=== PATIENT | female | born 1955 | race Caucasian/White ===

== ENCOUNTER 2016-06-10 14:36 | Outpatient (CLI) | payer MEDICARE, MEDICAID | END 2016-06-10 14:37 | disposition home or self-care (01) | DX: G47.33 Obstructive sleep apnea (adult) (pediatric) (principal) | CPT/HCPCS: 99214; G0463 ==

== ENCOUNTER 2016-07-15 13:45 | Outpatient (CLI) | payer MEDICARE, MEDICAID | END 2016-07-15 13:46 | disposition home or self-care (01) | DX: N18.3 Chronic kidney disease, stage 3 (moderate) (principal) ==

== ENCOUNTER 2016-09-08 14:47 | Outpatient (CLI) | payer MEDICARE, MEDICAID | END 2016-09-08 14:48 | disposition home or self-care (01) | DX: G47.33 Obstructive sleep apnea (adult) (pediatric) (principal); J06.9 Acute upper respiratory infection, unspecified | CPT/HCPCS: 99214; G0463 ==

== ENCOUNTER 2016-11-17 10:07 | Outpatient (CLI) | payer MEDICARE, MEDICAID | END 2016-11-17 10:08 | disposition home or self-care (01) | LOC: SC 10:07 | PROVIDERS: ATTEND Nurse Practitioner Family | DX: G47.33 Obstructive sleep apnea (adult) (pediatric) (principal) | CPT/HCPCS: 99214; G0463; 99212 ==

== ENCOUNTER 2016-12-25 10:07 | Outpatient (CLI) | payer MEDICARE, MEDICAID ==
--- NOTE | 2016-12-28 16:54 | Mammography Report ---
DIGITAL SCREENING MAMMOGRAM: 12/25/2016 CLINICAL INDICATION: A 61-year-old for screening. COMPARISON: 12/2015 TECHNIQUE: Routine CC and MLO projections were obtained of the breasts. FINDINGS: The breasts demonstrate scattered fibroglandular densities bilaterally. Coarse and puncta te, typically benign calcifications are present. No suspicious masses, clustered microcalcifications , or regions of architectural distortion are identified. IMPRESSION: BENIGN FINDINGS. RECOMMENDATION: Routine annual screening unless otherwise clinically indicated. BIRADS CATEGORY 2 - BENIGN FINDINGS. STANDARD QUALIFYING STATEMENTS 1. This examination was reviewed with the aid of Computer-Aided Detection (CAD). 2. A negative or benign imaging report should not delay biopsy if clinically suspicious findings are present. Consider surgical consultation if warranted. More than 5% of cancers are not identified by i maging. 3. Dense breasts may obscure an underlying neoplasm. JOB #: [id number] EXT JOB #:[id number]
== END 2016-12-25 10:08 | disposition home or self-care (01) ==
LOC: DI.N 10:07
PROVIDERS: ATTEND Physician Assistant Medical
DX: Z12.31 Encounter for screening mammogram for malignant neoplasm of breast (principal)
CPT/HCPCS: 77067

== ENCOUNTER 2017-01-19 10:14 | Outpatient (CLI) | payer MEDICARE, MEDICAID | END 2017-01-19 10:15 | disposition home or self-care (01) | LOC: SC 10:14 | PROVIDERS: ATTEND Nurse Practitioner Family | DX: G47.33 Obstructive sleep apnea (adult) (pediatric) (principal) | CPT/HCPCS: 99214; G0463; 99212 ==

== ENCOUNTER 2017-01-27 11:00 | Outpatient (CLI) | payer MEDICARE, MEDICAID ==
--- NOTE | 2017-01-28 12:14 | Ultrasound Report ---
BILATERAL LOWER EXTREMITY ARTERIAL DUPLEX: 01/27/2017 CLINICAL INDICATION: Peripheral vascular disease. COMPARISON: 11/13/2015. TECHNIQUE: Real-time sonographic vascular imaging was performed by the asphalt tamper through the lower extremities utilizing both color-flow and Doppler spectral analysis. Multiple u.s. representative static images were saved for review. RIGHT SIDE SITE PSV WAVEFORM STEN ERECTION SHOP SUPERVISOR 123 triphasic PSFA 132 triphasic MSFA 128 triphasic DSFA 108 triphasic PFA 112 monophasic POP 77 triphasic MADAN 65 triphasic RUCHING MACHINE OPERATOR 76 triphasic PER 56 monophasic DPA 76 triphasic LEFT SIDE SITE PSV WAVEFORM STEN ERECTION SHOP SUPERVISOR 147 triphasic PSFA 189 triphasic MSFA 133 triphasic DSFA 171 triphasic PFA 144 monophasic POP 81 triphasic MADAN 97 triphasic RUCHING MACHINE OPERATOR 63 biphasic PER 54 biphasic DPA 88 triphasic TECHNIQUE: Real-time scanning was performed. FINDINGS: RIGHT LEG: Waveforms are predominantly triphasic. There is no evidence of a focal velocity increase to suggest a hemodynamically significant stenosis. LEFT LEG: Waveforms are predominantly triphasic. There is no evidence of a focal velocity increase to suggest a hemodynamically significant stenosis. IMPRESSION: NO EVIDENCE OF A HEMODYNAMICALLY SIGNIFICANT STENOSIS IN EITHER LEG. NO SIGNIFICANT INTERVAL CHANGE. MTDD
== END 2017-01-27 23:59 | disposition home or self-care (01) ==
LOC: DI 11:00
PROVIDERS: ATTEND Physician Assistant Medical
DX: I73.9 Peripheral vascular disease, unspecified (principal); I71.4 Abdominal aortic aneurysm, without rupture
CPT/HCPCS: 93925

== ENCOUNTER 2017-02-02 09:38 | Outpatient (CLI) | payer MEDICARE, MEDICAID ==
[2017-02-02 10:46] LABS: CALCIUM 9.9 mg/dL (8.5-10.3); POTASSIUM 3.9 mmol/L (3.5-5.0)
[2017-02-02] MEDS ORDERED: IOPAMIDOL-300 100 ML VIAL IVP ONE (11:30)
--- NOTE | 2017-02-02 18:41 | CT Report ---
CT ANGIOGRAM AORTA WITH RUNOFF: 02/02/2017 CLINICAL INDICATION: Peripheral vascular disease, history of abdominal aortic aneurysm repair. Axial CT images of the abdomen, pelvis, and bilateral lower extremities were obtained in arterial pha se with enhancement. In accordance with CT protocol optimization, one or more of the following dose reduction techniques w ere utilized for this exam: automated exposure control, adjustment of mA and/or KV based on patient size, or use of iterative reconstructive technique. No previous runoff is available for comparison. Comparison is made to previous CT of the abdomen and pelvis of 11/13/2015. Limited evaluation of the lung bases is unremarkable. ABDOMEN: The abdominal aorta demonstrates atherosclerotic calcifications proximally. An aortobi-vaughn ac stent graft is in place, without evidence of intrastent stenosis. Right renal atrophy and right r enal arterial stent are stable. Left renal artery, celiac, and superior mesenteric arteries are wide ly patent. The iliac arteries are diseased but patent bilaterally, without evidence of a focal hemod ynamically significant stenosis. RIGHT LEG: The right common femoral artery, profunda femoris, superficial femoral, and popliteal art eries are patent but diseased. There is in line flow to the foot via a patent anterior tibial artery . The posterior tibial and peroneal arteries occlude in the mid calf. LEFT LEG: The left common femoral, profunda femoris, superficial femoral, and popliteal arteries are patent, with mild disease. There is no evidence of a hemodynamically significant stenosis. There i s three vessel runoff in the left calf, with flow into the foot via patent anterior tibial artery and posterior tibial arteries. Limited evaluation of abdominal structures demonstrates right renal atrophy and a left renal cyst. Osseous structures demonstrate degenerative changes. IMPRESSION: NO EVIDENCE OF A HEMODYNAMICALLY SIGNIFICANT ARTERIAL STENOSIS IN THE AORTA, ILIACS, OR FEMORALS BILATERALLY. RIGHT INFRAPOPLITEAL DISEASE, WITH SINGLE VESSEL RUNOFF TO THE RIGHT FOOT. TW O VESSEL RUNOFF TO THE LEFT FOOT. JOB #: [id number] EXT JOB #:[id number]
== END 2017-02-02 09:39 | disposition home or self-care (01) ==
LOC: LAB 09:38
PROVIDERS: ATTEND Physician Assistant Medical
DX: I73.9 Peripheral vascular disease, unspecified (principal); I71.4 Abdominal aortic aneurysm, without rupture; N18.3 Chronic kidney disease, stage 3 (moderate); Z51.81 Encounter for therapeutic drug level monitoring; Z79.899 Other long term (current) drug therapy
CPT/HCPCS: 36415; 75635; 80048; Q9967

== ENCOUNTER 2017-04-05 13:38 | Outpatient (CLI) | payer MEDICARE, MEDICAID | END 2017-04-05 13:39 | disposition home or self-care (01) | LOC: SC 13:38 | PROVIDERS: ATTEND Nurse Practitioner Family | DX: G47.33 Obstructive sleep apnea (adult) (pediatric) (principal); G47.00 Insomnia, unspecified | CPT/HCPCS: 99214; G0463; 99212 ==

== ENCOUNTER 2017-08-16 08:00 | Outpatient (CLI) | payer MEDICARE, MEDICAID ==
[2017-08-16 13:03] LABS: ALBUMIN/GLOBULIN RATIO 1.2 (1.0-2.2); ALKALINE PHOSPHATASE 46 IU/L (42-121); ALT ALANINE AMINOTRANSFERASE 16 IU/L (10-60); AST ASPARTATE AMINOTRANSFERASE 23 IU/L (10-42); BILIRUBIN,TOTAL 0.4 mg/dL (0.2-1.0); BUN - BLOOD UREA NITROGEN 18 mg/dL (6-20); CALCIUM 9.3 mg/dL (8.5-10.3); CARBON DIOXIDE - CO2 23 mmol/L (21-32); CHLORIDE 105 mmol/L (101-111); CHOL/HDL RATIO 3.4 (<4.4); CHOLESTEROL 134 mg/dL; CREATININE 1.1 mg/dL (0.4-1.0); GFR - MDRD 51 (>89); GLUCOSE 94 mg/dL (70-100); HDL CHOLESTEROL 40 mg/dL; LDL CHOLESTEROL,CALCULATED 65 mg/dL; LDL/HDL RATIO 1.6 (<4.4); SODIUM 138 mmol/L (135-145); TOTAL PROTEIN 7.3 g/dL (6.7-8.2); VLDL CHOLESTEROL 29 mg/dL
== END 2017-08-16 23:59 | disposition home or self-care (01) ==
LOC: LAB.WCP 08:00
PROVIDERS: ATTEND Physician Assistant Medical
DX: Z51.81 Encounter for therapeutic drug level monitoring (principal); E78.5 Hyperlipidemia, unspecified; Z79.899 Other long term (current) drug therapy; E04.9 Nontoxic goiter, unspecified
CPT/HCPCS: 36415; 80053; 80061; 83721; 84443

== ENCOUNTER 2017-09-14 10:08 | Outpatient (CLI) | payer MEDICARE, MEDICAID | END 2017-09-14 10:09 | disposition home or self-care (01) | LOC: SC 10:08 | PROVIDERS: ATTEND Nurse Practitioner Family | DX: G47.33 Obstructive sleep apnea (adult) (pediatric) (principal) | CPT/HCPCS: 99214; G0463; 99212 ==

== ENCOUNTER 2018-04-26 09:15 | Outpatient (CLI) | payer MEDICARE, MEDICAID ==
--- NOTE | 2018-04-26 12:50 | Ultrasound Report ---
Reason: PVD, AAA Procedure Date: 04/26/2018 Accession Number: [id number] / [id number] Procedure: US - Retroperitoneal Limited CPT Code: FULL RESULT: EXAM: AORTIC DOPPLER ULTRASOUND EXAM DATE: 04/26/2018 10:28 AM. CLINICAL HISTORY: PVD, AAA. COMPARISON: CT of the pelvis 11/13/2015. TECHNIQUE: Real-time sonographic imaging of retroperitoneal vascular structures, including color-flow, Doppler flow and spectral analysis was performed by the manager strategic development. Multiple access service representative static images were saved for review. FINDINGS: Aorta: The abdominal aorta was adequately visualized. No evidence for abdominal aortic aneurysm. Aorta: Proximal: Sagittal AP: 2.5 cm. Mid: Transverse: 1.6 x 1.8 cm. Distal: Transverse: 1.9 x 2.0 cm. Caliber WNL: Yes. Iliacs: Right Iliac: Transverse: 0.84 x 1.3 cm. Left Iliac: Transverse: 1.4 x 0.91 cm. Iliac Vessels: The visualized proximal common iliac arteries are normal in caliber. Other: The known aortic repair appears sonographically normal in caliber. IMPRESSION: Normal caliber status post AAA repair. RADIA
--- NOTE | 2018-04-26 12:52 | Ultrasound Report ---
Reason: PVD, AAA Procedure Date: 04/26/2018 Accession Number: [id number] / [id number] Procedure: US - Ankle Brachial Index CPT Code: FULL RESULT: EXAM: Bilateral Lower Extremity Arterial Doppler Ultrasound EXAM DATE: 04/26/2018 11:34 AM. CLINICAL HISTORY: PVD, AAA. History of hypertension, GERD and [id number] smoking history, diabetes, hyperlipidemia and coronary artery/peripheral vascular disease. COMPARISON: None. TECHNIQUE: Real-time sonographic vascular imaging was performed by the treating inspector, utilizing color-flow, Doppler flow, and spectral analysis. Multiple union contract representative static images were saved for review. FINDINGS: There is preserved flow by color and spectral Doppler with brisk systolic upstrokes and triphasic waveforms in the bilateral below the knee vasculature. Systolic Pressures: Right: Brachial Artery: 142 Post Tibial Artery: 133 Ankle/Arm Index: 0.9 Systolic Pressures: Left: Brachial Artery: 156 Post Tibial Artery: 147 Ankle/Arm Index: 0.9 IMPRESSION: Normal arterial duplex and BEATA bilaterally. RADIA
== END 2018-04-26 09:16 | disposition home or self-care (01) ==
LOC: DI 09:15
PROVIDERS: ATTEND Physician Assistant Medical
DX: I73.9 Peripheral vascular disease, unspecified (principal); I71.4 Abdominal aortic aneurysm, without rupture
CPT/HCPCS: 76775; 93922

== ENCOUNTER 2018-06-14 10:11 | Day surgery (SDC) | payer MEDICARE, MEDICAID ==
[2018-06-14] MEDS ORDERED: LACTATED RINGERS 1,000 ML IV ONE (10:51)
[2018-06-14] MEDS ORDERED: MIDAZOLAM 2 MG/2 ML VIAL IVP ONE (12:30)
[2018-06-14] MEDS ORDERED: fentaNYL 250 MCG/5 ML VIAL IVP ONE (12:30)
[2018-06-14 14:07] VITALS: BP 140/61
--- NOTE | 2018-06-14 15:10 | PROCEDURE REPORT ---
DATE OF SERVICE: 06/14/2018 Physician: Jordy Resendez MD PREOPERATIVE DIAGNOSIS: Positive Cologuard. POSTOPERATIVE DIAGNOSIS: Two polyps in ascending colon. PROCEDURE: Colonoscopy. INDICATION FOR PROCEDURE: The patient is a 63-year-old woman, who had a positive Cologuard study. She has never had a colonoscopy before. PROCEDURE DETAIL: The risks and benefits were explained to the patient, and she agreed to the procedure. She was taken to the operating room and given sedation. Timeout was performed, and everyone in the room agreed with the procedure. We began by inserting a well-lubricated colonoscope into the anal cavity. We advanced to the cecum without difficulty, then slowly withdrew. Two small polyps were seen in the ascending colon, both less than 1 cm in size. They were very close together. They were removed with cold forceps. The biopsy site readily achieved hemostasis and there was no residual bleeding. The prep was suboptimal. We spent a lot of time cleaning out the residual prep material and stool. Overall, all the mucosa was examined and no further abnormalities were seen. The scope was completely withdrawn after retroflexion of the anal verge and procedure terminated. The patient tolerated it well. She was taken to recovery room in stable condition. ESTIMATED BLOOD LOSS: 2 ml. COMPLICATIONS: None. SPECIMEN: Two ascending colon polyps. PLAN: Follow up path results. TD: 06/14/2018 13:43 NICHOLAS
== END 2018-06-14 10:12 | disposition home or self-care (01) ==
LOC: SDS 10:11
PROVIDERS: ATTEND Surgery
PROC: 0DBK8ZZ Excision of Ascending Colon, Via Natural or Artificial Opening Endoscopic (ICD-10-PCS; principal; 2018-06-14 11:30)
DX: R19.5 Other fecal abnormalities (principal); D12.2 Benign neoplasm of ascending colon; G47.33 Obstructive sleep apnea (adult) (pediatric); I12.9 Hypertensive chronic kidney disease with stage 1 through stage 4 chronic kidney disease, or unspecified chronic kidney disease; N18.3 Chronic kidney disease, stage 3 (moderate); E78.00 Pure hypercholesterolemia, unspecified; Z87.891 Personal history of nicotine dependence
CPT/HCPCS: 45380; J7120

== ENCOUNTER 2018-10-05 12:45 | Outpatient (CLI) | payer MEDICARE, MEDICAID | END 2018-10-05 12:46 | disposition home or self-care (01) | LOC: SC 12:45 | PROVIDERS: ATTEND Nurse Practitioner Family | DX: G47.33 Obstructive sleep apnea (adult) (pediatric) (principal) | CPT/HCPCS: 99213; G0463; 99212 ==

== ENCOUNTER 2018-11-17 08:00 | Outpatient (CLI) | payer MEDICARE, MEDICAID ==
[2018-11-17 19:34] LABS: ALBUMIN/GLOBULIN RATIO 1.1 (1.0-2.2); ALKALINE PHOSPHATASE 49 IU/L (42-121); ALT ALANINE AMINOTRANSFERASE 14 IU/L (10-60); AST ASPARTATE AMINOTRANSFERASE 19 IU/L (10-42); BILIRUBIN,TOTAL 0.7 mg/dL (0.2-1.0); BUN - BLOOD UREA NITROGEN 21 mg/dL (6-20); CALCIUM 9.3 mg/dL (8.5-10.3); CARBON DIOXIDE - CO2 22 mmol/L (21-32); CHLORIDE 110 mmol/L (101-111); CHOL/HDL RATIO 3.1 (<4.4); CHOLESTEROL 121 mg/dL; CREATININE 0.9 mg/dL (0.4-1.0); GFR - MDRD 64 (>89); GLUCOSE 96 mg/dL (70-100); HDL CHOLESTEROL 39 mg/dL; LDL CHOLESTEROL,CALCULATED 62 mg/dL; LDL/HDL RATIO 1.6 (<4.4); SODIUM 142 mmol/L (135-145); TOTAL PROTEIN 7.5 g/dL (6.7-8.2); VLDL CHOLESTEROL 20 mg/dL
== END 2018-11-17 08:01 | disposition home or self-care (01) ==
LOC: LAB.WCP 08:00
PROVIDERS: ATTEND Physician Assistant Medical
DX: E78.5 Hyperlipidemia, unspecified (principal)
CPT/HCPCS: 36415; 80053; 80061; 83721

== ENCOUNTER 2019-05-16 09:41 | Outpatient (CLI) | payer MEDICARE, MEDICAID ==
[2019-05-16 13:52] LABS: BASOPHILS % (AUTO) 0.5 %; EOSINOPHILS # (AUTO) 0.3 10^3/uL (0.0-0.7); EOSINOPHILS % (AUTO) 4.5 %; LYMPHOCYTES # (AUTO) 1.7 10^3/uL (1.5-3.5); LYMPHOCYTES % (AUTO) 27.4 %; MEAN CORPUSCULAR HEMOGLOBIN 32.4 pg (27.0-31.0); MEAN CORPUSCULAR HGB CONC 32.3 g/dL (32.0-36.0); MEAN CORPUSCULAR VOLUME 100.5 fL (81.0-99.0); MEAN PLATELET VOLUME 10.5 fL (7.9-10.8); MONOCYTES # (AUTO) 0.4 10^3/uL (0.0-1.0); MONOCYTES % (AUTO) 6.9 %; NEUTROPHILS # (AUTO) 3.8 10^3/uL (1.5-6.6); NEUTROPHILS % (AUTO) 60.5 %; PLT - PLATELET COUNT 223 10^3/uL (130-450); RED CELL DISTRIBUTION WIDTH 12.8 % (12.0-15.0); WHITE BLOOD COUNT 6.2 x10^3/uL (4.8-10.8)
[2019-05-16 14:14] LABS: ALBUMIN/GLOBULIN RATIO 1.1 (1.0-2.2); ALKALINE PHOSPHATASE 47 IU/L (42-121); ALT ALANINE AMINOTRANSFERASE 12 IU/L (10-60); AST ASPARTATE AMINOTRANSFERASE 18 IU/L (10-42); BILIRUBIN,TOTAL 0.5 mg/dL (0.2-1.0); BUN - BLOOD UREA NITROGEN 21 mg/dL (6-20); CALCIUM 9.1 mg/dL (8.5-10.3); CARBON DIOXIDE - CO2 26 mmol/L (21-32); CHLORIDE 107 mmol/L (101-111); CHOL/HDL RATIO 2.7 (<4.4); CHOLESTEROL 134 mg/dL; GFR - MDRD 56 (>89); GLUCOSE 88 mg/dL (70-100); HDL CHOLESTEROL 50 mg/dL; LDL CHOLESTEROL,CALCULATED 69 mg/dL; LDL/HDL RATIO 1.4 (<4.4); SODIUM 139 mmol/L (135-145); TOTAL PROTEIN 7.7 g/dL (6.7-8.2); VLDL CHOLESTEROL 15 mg/dL
== END 2019-05-16 23:59 | disposition home or self-care (01) ==
LOC: LAB.WCP 09:41
PROVIDERS: ATTEND Physician Assistant Medical
DX: E78.5 Hyperlipidemia, unspecified (principal); I10 Essential (primary) hypertension
CPT/HCPCS: 36415; 80053; 80061; 83721; 85025

== ENCOUNTER 2019-06-13 09:35 | Outpatient (CLI) | payer MEDICARE, MEDICAID ==
--- NOTE | 2019-06-13 22:57 | Ultrasound Report ---
Reason: AAA Procedure Date: 06/13/2019 Accession Number: [id number] / [id number] Procedure: US - Retroperitoneal Limited CPT Code: Final Report FULL RESULT: EXAM: AORTIC DOPPLER ULTRASOUND EXAM DATE: 06/13/2019 12:21 PM. CLINICAL HISTORY: Abdominal aortic aneurysm monitoring status post 2011 repair. COMPARISON: RETROPERITONEAL LIMITED 04/26/2018 10:28 AM ANGIO AORTA W/RUNOFF 02/02/2017 11:21 AM. TECHNIQUE: Real-time sonographic imaging of retroperitoneal vascular structures, including color-flow, Doppler flow and spectral analysis was performed by the street contractor. Multiple truck sales representative static images were saved for review. FINDINGS: Aorta: The abdominal aorta was adequately visualized. No evidence for abdominal aortic aneurysm. Aorta: Proximal: Sagittal AP 2.3 cm. Mid: Transverse 1.8 x 2.4 cm. Distal: Transverse 1.8 x 2.2 cm. Caliber: WNL: Yes. Plaque visualized: Yes. Iliacs: Right Iliac: Transverse 0.98 x 1.3 cm. Left Iliac: Transverse 1.6 x 1.3 cm. Other: None. IMPRESSION: No abdominal aortic aneurysm. RADIA
--- NOTE | 2019-06-14 12:05 | Ultrasound Report ---
Reason: GOITER Procedure Date: 06/13/2019 Accession Number: [id number] / [id number] Procedure: US - Head or Neck Soft Tissue CPT Code: Final Report FULL RESULT: EXAM: THYROID ULTRASOUND EXAM DATE: 06/13/2019 12:21 PM. CLINICAL HISTORY: GOITER. COMPARISON: CHEST SCREEN LOW DOSE W/O 01/02/2016 2:06 PM. TECHNIQUE: Real time sonographic imaging of the thyroid was performed by the high pressure operator. Multiple cash posting representative static images were saved for review. FINDINGS: THYROID GLAND: Right Lobe: 5.7 x 1.6 x 2.6 cm, volume 12.4 cc. Normal background echotexture. Right Lobe Nodules: None. Left Lobe: 5.8 x 1.5 x 1.9 cm, volume 8.6 cc. Normal background echotexture. Left Lobe Nodules: 1. Superior heterogeneous, 0.7 x 0.5 x 0.6 cm. Isthmus: 0.7 cm AP. Isthmic Nodules: None. LYMPH NODES: No adenopathy demonstrated in the central or lateral compartment. OTHER: None. IMPRESSION: 1. Asymmetric enlarged thyroid gland with the right lobe Larger than the left. Single left 0.7 cm thyroid nodule. The nodule does not currently warrant fine needle aspiration biopsy. Consider continued surveillance with follow-up in 12-24 months. Management recommendations are based on 2015 [place] [employer] Management Guidelines for Adult Patients with Thyroid Nodules and Differentiated Thyroid Cancer. RADIA
--- NOTE | 2019-06-14 12:41 | Ultrasound Report ---
Reason: PVD Procedure Date: 06/13/2019 Accession Number: [id number] / [id number] Procedure: US - Duplex Lwr Ext Arterial Bilat CPT Code: Final Report FULL RESULT: EXAM: Bilateral Lower Extremity Arterial Doppler Ultrasound EXAM DATE: 06/13/2019 12:21 PM. CLINICAL HISTORY: Peripheral vascular disease. History of former smoking, hypertension, elevated lipids. COMPARISON: DUPLEX LWR EXT ARTERIAL BILAT 01/27/2017 11:30 AM ANGIO AORTA W/RUNOFF 02/02/2017 11:21 AM. TECHNIQUE: Real-time sonographic vascular imaging was performed by the water taxi ferry operator, utilizing color-flow, Doppler flow, and spectral analysis. Multiple apprenticeship training representative static images were saved for review. FINDINGS: No significant calcified plaque demonstrated. Patient's body habitus could limit grayscale evaluation. Spectral Doppler images are technically satisfactory. Right Leg: COMMUNITY REPRESENTATIVE: PSV 156 cm/sec. Triphasic waveform. PSFA: PSV 152 cm/sec. Triphasic waveform. MSFA: PSV 147 cm/sec. Triphasic waveform. DSFA: PSV 148 cm/sec. Triphasic waveform. PFA: PSV 94 cm/sec. Triphasic waveform. POP: PSV 92 cm/sec. Biphasic waveform. MADAN: PSV 40 cm/sec. Monophasic? Waveform. CONSTRUCTION CARPENTER: PSV 57 cm/sec. Biphasic waveform. PER: PSV 15 cm/sec. Monophasic waveform. DPA: PSV 74 cm/sec. Biphasic? Waveform. Left Leg: COMMUNITY REPRESENTATIVE: PSV 166 cm/sec. Triphasic waveform. PSFA: PSV 155 cm/sec. Triphasic waveform. MSFA: PSV 144 cm/sec. Triphasic waveform. DSFA: PSV 163 cm/sec. Triphasic waveform. PFA: PSV 153 cm/sec. Triphasic Waveform. POP: PSV 92 cm/sec. Monophasic waveform. MADAN: PSV 23 cm/sec. Monophasic waveform. CONSTRUCTION CARPENTER: PSV 56 cm/sec. Biphasic waveform. PER: PSV 23 cm/sec. Monophasic? Waveform. DPA: PSV 63 cm/sec. Triphasic waveform. Brachial Artery Systolic Pressure: Right 135/66. Left 132/68. Ankle Systolic Pressure: Right 139/68. Left 132/62. Ankle/Arm Index: Right 1.0. Left .97. IMPRESSION: 1. No hemodynamically significant arterial stenosis within right or left lower extremities. 2. Normal ankle brachial indices, 1.0 on the right and 0.97 on the left. RADIA
== END 2019-06-13 09:36 | disposition home or self-care (01) ==
LOC: DI 09:35
PROVIDERS: ATTEND Physician Assistant Medical
DX: E04.1 Nontoxic single thyroid nodule (principal); Z09 Encounter for follow-up examination after completed treatment for conditions other than malignant neoplasm; I73.9 Peripheral vascular disease, unspecified; Z86.79 Personal history of other diseases of the circulatory system
CPT/HCPCS: 76536; 76775; 93922; 93925

== ENCOUNTER 2019-12-05 14:13 | Outpatient (CLI) | payer MEDICARE, MEDICAID ==
--- NOTE | 2019-12-05 16:17 | MRI Report ---
PROCEDURE: Lumbar Spine W/O INDICATIONS: LUMBAR SPINAL STENOSIS TECHNIQUE: Noncontrast sagittal T1 spin echo and T2 fast echo, sagittal STIR, axial T1 and T2 fast spin echo thr ough the lumbar spine. In cases with scoliosis, additional coronal T2 fast spin echo may be performe d. COMPARISON: None. FINDINGS: Image quality: Excellent. Alignment and Curvature: No plain films are available for comparison. Thus, for numbering purposes, 5 lumbar type vertebral bodies will be presumed for the current report. This should be confirmed with plain film correlation prior to any lumbar spinal intervention. There is mild grade 1 anterolisthesi s of L4 on L5. Mild reactive signal within the endplates adjacent to the L1-L2, L2-L3, L3-L4, and L4- L5 intervertebral discs. Bone Marrow: Marrow is of normal overall signal. No acute vertebral body compression fractures. Spinal Cord: Conus medullaris terminates at the L1-L2 disc space level. Visualized cord demonstrate s normal signal and size. Paraspinous Soft Tissues: No paravertebral masses. Severe right renal atrophy. T12-L1: Mild disc height loss and desiccation. Mild diffuse disc bulge. Mild facet and ligament flav um hypertrophy. Mild canal stenosis. No foraminal stenosis. L1-L2: Mild disc desiccation. Mild facet and ligament flavum hypertrophy. No significant canal, no r foraminal stenosis. L2-L3: Mild disc desiccation and diffuse disc bulge. Mild facet and ligament flavum hypertrophy. M ild epidural lipomatosis. Mild canal stenosis. Mild bilateral foraminal stenosis. L3-L4: Mild disc height loss and desiccation. Mild diffuse disc bulge. Mild facet and ligament flav um hypertrophy. Mild canal stenosis. Mild bilateral foraminal stenosis. L4-L5: Moderate disc height loss and desiccation. Mild diffuse disc bulge. Moderate facet hypertrop hy bilaterally. Mild canal stenosis. Mild bilateral foraminal stenosis. L5-S1: Moderate disc desiccation. Mild diffuse disc bulge. Moderate bilateral facet hypertrophy. Mi ld canal stenosis. Mild bilateral foraminal stenosis. IMPRESSION: 1. Multilevel degenerative disc and facet disease, in addition to epidural lipomatosis and ligamentum flavum hypertrophy. 2. Mild multilevel canal and foraminal stenoses. No neural impingement. Reviewed by: Doc Lucero MD on 12/05/2019 4:16 PM PDT Approved by: Doc Lucero MD on 12/05/2019 4:16 PM PDT Station ID: [id number]
--- NOTE | 2019-12-05 16:28 | XRAY Report ---
PROCEDURE: Shoulder 3 View LT INDICATIONS: Left shoulder pain and impingement TECHNIQUE: 3 views of the shoulder were acquired. COMPARISON: None. FINDINGS: Bones: High riding humeral head which can be seen in the setting of chronic rotator cuff tear. There is no fracture or dislocation. No significant degenerative changes of the clinical humeral joint. Mi ld degenerative changes of the acromioclavicular joint. Visualized ribs appear intact. Soft tissues: No suspicious soft tissue calcifications. IMPRESSION: No acute finding. Humeral head which can be seen in setting of chronic rotator cuff tear. Reviewed by: Crow Vallejo MD on 12/05/2019 4:26 PM PDT Approved by: Crow Vallejo MD on 12/05/2019 4:26 PM PDT Station ID: [id number]
--- NOTE | 2019-12-05 17:08 | DEXA Report ---
Reason: POSTMENOPAUSAL Procedure Date: 12/05/2019 Accession Number: [id number] / [id number] Procedure: DEX - Dexa Spine and/or Hip CPT Code: Final Report FULL RESULT: PROCEDURE: Dexa Spine and/or Hip INDICATIONS: POSTMENOPAUSAL TECHNIQUE: Dual energy x-ray absorptiometry (DXA) was performed on a [employer] System. Regions measured are the AP Spine, femoral neck, and if needed forearm. COMPARISON: None. FINDINGS: Lumbar Spine: Bone Mineral Density 1.376 g/cm/cm,T score 1.6, Left Hip: Bone Mineral Density 1.028 g/cm/cm,T score 0.2, Left Femoral Neck: Bone Mineral Density 0.908 g/cm/cm, T score -0.9, (T score greater or equal to -1.0: NORMAL) (T score from -1.1 to -2.4: OSTEOPENIA) (T score less than or equal to -2.5 to: OSTEOPOROSIS) Impression: Normal bone mineral density. Patients with diagnosis of osteoporosis or osteopenia should have regular bone mineral density assessment. For those eligible for Medicare, routine testing is allowed once every 2 years. Testing frequency can be increased for patients who have rapidly progressing disease or for those who are receiving medical therapy to restore bone mass. Reviewed by: Crow Vallejo MD on 12/05/2019 5:07 PM PDT Approved by: Crow Vallejo MD on 12/05/2019 5:07 PM PDT Station ID: [id number]
== END 2019-12-05 14:14 | disposition home or self-care (01) ==
LOC: DI 14:13
PROVIDERS: ATTEND Physician Assistant Medical
DX: Z78.0 Asymptomatic menopausal state (principal); M43.16 Spondylolisthesis, lumbar region; M51.35 Other intervertebral disc degeneration, thoracolumbar region; M51.36 Other intervertebral disc degeneration, lumbar region; M51.37 Other intervertebral disc degeneration, lumbosacral region; M47.815 Spondylosis without myelopathy or radiculopathy, thoracolumbar region; M47.816 Spondylosis without myelopathy or radiculopathy, lumbar region; M47.817 Spondylosis without myelopathy or radiculopathy, lumbosacral region; M48.05 Spinal stenosis, thoracolumbar region; M48.061 Spinal stenosis, lumbar region without neurogenic claudication; M48.07 Spinal stenosis, lumbosacral region; R93.6 Abnormal findings on diagnostic imaging of limbs
CPT/HCPCS: 72148; 77080

== ENCOUNTER 2020-05-14 11:02 | Outpatient (CLI) | payer MEDICARE, MEDICAID ==
[2020-05-14 18:32] LABS: BASOPHILS % (AUTO) 0.5 %; EOSINOPHILS # (AUTO) 0.4 10^3/uL (0.0-0.7); EOSINOPHILS % (AUTO) 5.7 %; HGB - HEMOGLOBIN 12.9 g/dL (12.0-16.0); LYMPHOCYTES # (AUTO) 2.5 10^3/uL (1.5-3.5); MEAN CORPUSCULAR HEMOGLOBIN 32.7 pg (27.0-31.0); MEAN CORPUSCULAR HGB CONC 32.3 g/dL (32.0-36.0); MEAN CORPUSCULAR VOLUME 101.5 fL (81.0-99.0); MEAN PLATELET VOLUME 10.3 fL (7.9-10.8); MONOCYTES # (AUTO) 0.6 10^3/uL (0.0-1.0); MONOCYTES % (AUTO) 8.8 %; NEUTROPHILS # (AUTO) 3.1 10^3/uL (1.5-6.6); NEUTROPHILS % (AUTO) 46.7 %; PLT - PLATELET COUNT 228 10^3/uL (130-450); RED BLOOD COUNT 3.94 10^6/uL (4.20-5.40); RED CELL DISTRIBUTION WIDTH 12.7 % (12.0-15.0); WHITE BLOOD COUNT 6.6 x10^3/uL (4.8-10.8)
[2020-05-14 18:52] LABS: ALBUMIN 4.2 g/dL (3.2-5.5); ALBUMIN/GLOBULIN RATIO 1.1 (1.0-2.2); ALKALINE PHOSPHATASE 57 IU/L (42-121); ALT ALANINE AMINOTRANSFERASE 19 IU/L (10-60); AST ASPARTATE AMINOTRANSFERASE 26 IU/L (10-42); BILIRUBIN,TOTAL 0.7 mg/dL (0.2-1.0); BUN - BLOOD UREA NITROGEN 24 mg/dL (6-20); CARBON DIOXIDE - CO2 24 mmol/L (21-32); CHLORIDE 107 mmol/L (101-111); CHOL/HDL RATIO 2.9 (<4.4); CHOLESTEROL 148 mg/dL; CREATININE 1.1 mg/dL (0.4-1.0); GLUCOSE 94 mg/dL (70-100); HDL CHOLESTEROL 51 mg/dL; LDL CHOLESTEROL,CALCULATED 75 mg/dL; LDL/HDL RATIO 1.5 (<4.4); SODIUM 142 mmol/L (135-145); TOTAL PROTEIN 8.2 g/dL (6.7-8.2); VLDL CHOLESTEROL 22 mg/dL
== END 2020-05-14 11:03 | disposition home or self-care (01) ==
LOC: LAB.N 11:02
PROVIDERS: ATTEND Physician Assistant Medical
DX: Z00.00 Encounter for general adult medical examination without abnormal findings (principal); E78.5 Hyperlipidemia, unspecified; I12.9 Hypertensive chronic kidney disease with stage 1 through stage 4 chronic kidney disease, or unspecified chronic kidney disease; N18.30 Chronic kidney disease, stage 3 unspecified
CPT/HCPCS: 36415; 80053; 80061; 83721; 84443; 85025

== ENCOUNTER 2020-11-08 08:00 | Outpatient (CLI) | payer MEDICARE, MEDICAID ==
[2020-11-08 17:58] LABS: ALBUMIN 4.3 g/dL (3.2-5.5); ALBUMIN/GLOBULIN RATIO 1.3 (1.0-2.2); ALKALINE PHOSPHATASE 54 IU/L (42-121); ALT ALANINE AMINOTRANSFERASE 14 IU/L (10-60); AST ASPARTATE AMINOTRANSFERASE 19 IU/L (10-42); BILIRUBIN,TOTAL 0.2 mg/dL (0.2-1.0); BUN - BLOOD UREA NITROGEN 23 mg/dL (6-20); CALCIUM 9.4 mg/dL (8.5-10.3); CARBON DIOXIDE - CO2 24 mmol/L (21-32); CHLORIDE 109 mmol/L (101-111); CHOL/HDL RATIO 2.3 (<4.4); CHOLESTEROL 119 mg/dL; CREATININE 1.1 mg/dL (0.4-1.0); GFR - MDRD 50 (>89); GLUCOSE 98 mg/dL (70-100); HDL CHOLESTEROL 51 mg/dL; LDL CHOLESTEROL,CALCULATED 56 mg/dL; LDL/HDL RATIO 1.1 (<4.4); POTASSIUM 3.9 mmol/L (3.5-5.0); SODIUM 142 mmol/L (135-145); TOTAL PROTEIN 7.7 g/dL (6.7-8.2); TRIGLYCERIDES 59 mg/dL; VLDL CHOLESTEROL 12 mg/dL
== END 2020-11-08 23:59 | disposition home or self-care (01) ==
LOC: LAB.WCP 08:00
PROVIDERS: ATTEND Physician Assistant Medical
DX: E78.5 Hyperlipidemia, unspecified (principal)
CPT/HCPCS: 36415; 80053; 80061; 83721

== ENCOUNTER 2020-11-15 11:47 | Outpatient (CLI) | payer MEDICARE, MEDICAID ==
--- NOTE | 2020-11-15 12:29 | XRAY Report ---
PROCEDURE: Knee 3 View RT INDICATIONS: R KNEE PX TECHNIQUE: 3 views of the right knee(s) were acquired. COMPARISON: None. FINDINGS: Bones: No fractures or dislocations. Moderate tricompartmental osteoarthritis is seen with joint spa ce narrowing, subchondral sclerosis and marginal osteophyte formation. Mild lateral subluxation of pa tella is seen. No suspicious bony lesions. Soft tissues: No significant joint effusion. No suspicious soft tissue calcifications. IMPRESSION: Moderate tricompartmental osteoarthritis. No fracture or dislocation. No significant rachael nt effusion. Mild lateral subluxation of patella. Reviewed by: Art Oakes MD on 11/15/2020 12:27 PM PDT Approved by: Art Oakes MD on 11/15/2020 12:27 PM PDT Station ID: [id number]
== END 2020-11-15 11:48 | disposition home or self-care (01) ==
LOC: DI.N 11:47
PROVIDERS: ATTEND Physician Assistant Medical
DX: M25.561 Pain in right knee (principal); M17.11 Unilateral primary osteoarthritis, right knee

== ENCOUNTER 2021-05-26 10:27 | Outpatient (CLI) | payer MEDICARE, MEDICAID ==
[2021-05-26 18:13] LABS: BUN - BLOOD UREA NITROGEN 24 mg/dL (6-20); CALCIUM 9.5 mg/dL (8.5-10.3); CARBON DIOXIDE - CO2 28 mmol/L (21-32); CHLORIDE 103 mmol/L (101-111); CHOL/HDL RATIO 2.6 (<4.4); CHOLESTEROL 144 mg/dL; CREATININE 1.1 mg/dL (0.4-1.0); GFR - MDRD 50 (>89); GLUCOSE 95 mg/dL (70-100); HDL CHOLESTEROL 55 mg/dL; LDL CHOLESTEROL,CALCULATED 76 mg/dL; LDL/HDL RATIO 1.4 (<4.4); POTASSIUM 3.5 mmol/L (3.5-5.0); SODIUM 141 mmol/L (135-145); TRIGLYCERIDES 67 mg/dL; VLDL CHOLESTEROL 13 mg/dL
== END 2021-05-26 23:59 | disposition home or self-care (01) ==
LOC: LAB.WCP 10:27
PROVIDERS: ATTEND Physician Assistant Medical
DX: E78.5 Hyperlipidemia, unspecified (principal)
CPT/HCPCS: 36415; 80048; 80061; 83721

== ENCOUNTER 2021-08-31 08:00 | Outpatient (CLI) | payer MEDICARE, MEDICAID ==
[2021-09-12 15:32] LABS: HSV 1 DNA NOT DETECTED; HSV 2 DNA DETECTED; SOURCE FINGER
== END 2021-08-31 23:59 | disposition home or self-care (01) ==
LOC: LAB 08:00
PROVIDERS: ATTEND Physician Assistant
DX: R22.30 Localized swelling, mass and lump, unspecified upper limb (principal)
CPT/HCPCS: 81599; 87070; 87205; 87529; 87798

== ENCOUNTER 2022-10-06 14:57 | Outpatient (CLI) | payer MEDICARE, MEDICAID ==
[2022-10-06 18:25] LABS: BASOPHILS % (AUTO) 0.5 %; EOSINOPHILS # (AUTO) 0.1 10^3/uL (0.0-0.7); EOSINOPHILS % (AUTO) 1.4 %; HCT - HEMATOCRIT 41.2 % (37.0-47.0); HGB - HEMOGLOBIN 13.5 g/dL (12.0-16.0); LYMPHOCYTES # (AUTO) 2.1 10^3/uL (1.5-3.5); LYMPHOCYTES % (AUTO) 27.3 %; MEAN CORPUSCULAR HEMOGLOBIN 31.9 pg (27.0-31.0); MEAN CORPUSCULAR HGB CONC 32.8 g/dL (32.0-36.0); MEAN CORPUSCULAR VOLUME 97.4 fL (81.0-99.0); MEAN PLATELET VOLUME 10.8 fL (7.9-10.8); MONOCYTES # (AUTO) 0.5 10^3/uL (0.0-1.0); MONOCYTES % (AUTO) 5.8 %; NEUTROPHILS # (AUTO) 5.1 10^3/uL (1.5-6.6); NEUTROPHILS % (AUTO) 64.7 %; PLT - PLATELET COUNT 225 10^3/uL (130-450); RED BLOOD COUNT 4.23 10^6/uL (4.20-5.40); RED CELL DISTRIBUTION WIDTH 12.9 % (12.0-15.0); WHITE BLOOD COUNT 7.8 x10^3/uL (4.8-10.8)
[2022-10-06 18:38] LABS: ALBUMIN/GLOBULIN RATIO 1.1 (1.0-2.2); ALKALINE PHOSPHATASE 72 IU/L (42-121); ALT ALANINE AMINOTRANSFERASE 14 IU/L (10-60); AST ASPARTATE AMINOTRANSFERASE 18 IU/L (10-42); BILIRUBIN,TOTAL 0.7 mg/dL (0.2-1.0); BUN - BLOOD UREA NITROGEN 13 mg/dL (6-20); CALCIUM 9.6 mg/dL (8.5-10.3); CARBON DIOXIDE - CO2 24 mmol/L (21-32); CHLORIDE 109 mmol/L (101-111); CHOLESTEROL 140 mg/dL; CREATININE 0.9 mg/dL (0.4-1.0); GFR - MDRD 63 (>89); GLUCOSE 119 mg/dL (70-100); HDL CHOLESTEROL 46 mg/dL; LDL CHOLESTEROL,CALCULATED 78 mg/dL; LDL/HDL RATIO 1.7 (<4.4); POTASSIUM 3.8 mmol/L (3.5-5.0); SODIUM 143 mmol/L (135-145); TOTAL PROTEIN 7.6 g/dL (6.7-8.2); TRIGLYCERIDES 82 mg/dL; VLDL CHOLESTEROL 16 mg/dL
== END 2022-10-06 14:58 | disposition home or self-care (01) ==
LOC: LAB.N 14:57
PROVIDERS: ATTEND Physician Assistant Medical
DX: E78.5 Hyperlipidemia, unspecified (principal); I10 Essential (primary) hypertension
CPT/HCPCS: 36415; 80053; 80061; 83721; 85025